=== PATIENT | male | born 2000 | race Caucasian/White ===

== ENCOUNTER 2022-07-04 01:53 | Emergency (ER) | payer OTHER, SELFPAY ==
[2022-07-04] VITALS (14 sets, daily range): BP systolic 125–149; BP diastolic 70–83; PULSE 91–105; RESP 12–24; TEMP 36.8; O2SAT 97–100
--- NOTE | ~2022-07-04 | XR_ITS ---
EXAMINATION: XR chest 2V 07/04/2022 02:22 INDICATION: Chest pain PROCEDURE: 2 view chest COMPARISON: No prior studies for comparison. FINDINGS: The lungs are clear. The cardiomediastinal silhouette is within normal limits. There are no pleural effusions. There is no pneumothorax suspected. IMPRESSION: 1: NO ACUTE CARDIOPULMONARY DISEASE. Reviewed, dictated and finalized at location [facility]. [facility] [employer]
--- NOTE | 2022-07-04 02:05 | ECG_ITS ---
Measurements Intervals [place] Rate: 99 P: 47 [place]: 148 QRS: 36 QRSD: 97 T: 24 QT: 352 QTc: 453 Interpretive Statements SINUS RHYTHM NONSPECIFIC ST ABNORMALITY BORDERLINE ECG NO PREVIOUS ECG AVAILABLE FOR COMPARISON Electronically Signed On 07-04-2022 14:45:30 [employer] by Trell Rosenberg M.D.
[2022-07-04 02:14] LABS: Basophils Percent Auto 0.1 % (0.2-1.2); Eosinophils Percent Auto 0.2 % (0-4.4); Hematocrit 43.1 % (42.0-52.0); Hemoglobin 14.8 g/dL (14.0-18.0); Immature Granulocyte Absolute 0.07 K/mm3 (0.00-0.031); Immature Granulocyte Percent A 0.4 % (0-0.5); Lymphocytes Absolute Auto 2.07 K/mm3 (0.9-3.2); Lymphocytes Percent Auto 12.6 % (18.3-44.2); Mean Corpuscular HGB Conc 34.3 g/dl (32-36); Mean Corpuscular Hemoglobin 31.5 pg (26-34); Mean Corpuscular Volume 91.7 fl (80-100); Mean Platelet Volume 9.7 fl (7.4-10.4); Monocytes Absolute Auto 1.3 K/mm3 (0.1-0.6); Monocytes Percent Auto 8.1 % (2.6-8.5); Neutrophils Absolute Auto 12.9 K/mm3 (1.3-6.7); Neutrophils Percent Auto 78.6 % (45.5-73.1); Platelet Count Result 255 k/mm3 (150-375); Red Cell Distribution Width 12.5 % (11.5-14.5); White Blood Count 16.4 K/mm3 (4.5-10.0)
[2022-07-04 02:30] LABS: Alanine Aminotransferase 23 U/L (6-50); Albumin Level 5.1 g/dL (3.5-5.1); Alkaline Phosphatase 74 U/L (38-126); Anion Gap 10 mmol/L (8-16); Aspartate Amino Transferase 37 U/L (17-59); Bilirubin,Total 0.6 mg/dL (0.2-1.3); Blood Urea Nitrogen 9 mg/dL (9-20); Calcium 8.7 mg/dL (8.4-10.2); Carbon Dioxide 28 mmol/L (22-30); Chloride 101 mmol/L (98-107); Estimated Glomerular Filt Rate > 60; Glucose 96 mg/dL (65-110); Lipase 71 U/L (23-300); Potassium 4.1 mmol/L (3.4-5.0); Sodium 139 mmol/L (137-145)
[2022-07-04 02:34] LABS: INR 1.1; Prothrombin Time 13.5 Seconds (11.1-14.7)
[2022-07-04 02:35] LABS: Partial Thromboplastin Time 30.2 SECONDS (22.3-36.8)
[2022-07-04] MEDS: LORazepam INJ (*CRX) 2 MG/ML VIAL IV PUSH (02:41)
[2022-07-04 02:42] LABS: Troponin I < 0.012 ng/mL (0.000-0.034)
--- NOTE | 2022-07-04 03:16 | ED.GENADULT ---
HPI - General Adult General Chief complaint: Chest Pain Stated complaint: Chest pain/shoulder pain after cocaine Time Seen by Provider: 07/04/22 02:08 History of Present Illness HPI narrative: this is a 22-year-old male presenting with chest pain. Patient used cocaine at midnight. He then developed chest tightness that radiated to his left arm and to his jaw. Three out 10 intensity, improving and has now resolved. Never experienced before no exacerbating or relieving factors. Associated shortness breath. No nausea vomiting diaphoresis or exertional component. No fever, chills, productive cough. No history of IV drug abuse. Related Data Allergies Allergy/AdvReac Type Severity Reaction Status Date / Time No Known Drug Allergies Allergy Unknown unknown Verified 07/04/22 02:00 [facility] Past Medical History Medical History Anxiety Substance use disorder Social History Social History Social History: Patient drinks alcohol on weekend, uses cocaine frequently, denies other drug use Smoking status: Never smoker Tobacco type: e-cigarettes/vaping Second hand tobacco smoke exposure: No Alcohol intake: current Alcohol use details: occasional Substance use: former Substance use type: does not use and marijuana Living arrangements: with family Occupation/Education: occupation Gender identity (if verbalized by the patient): Male Exam Narrative: APPEARANCE: No apparent distress. Head: atraumatic. EYES: EOMI, NOSE: Atraumatic NECK: Trachea midline RESPIRATORY: No increased rate of breathing your auscultation bilaterally CARDIOVASCULAR: RRR, no peripheral edema ABDOMINAL: Non-distended, no guarding rebound MUSCULOSKELETAl: No obvious deformities NEURO: Alert. Moving 4/4 extremities SKIN:: Warm, dry. Normal color PSYCHIATRIC: Normal affect Course Vital Signs Vital signs: Vital Signs Temperature 98.2 F 07/04/22 01:57 Pulse Rate 102 H 07/04/22 01:57 Respiratory Rate 20 07/04/22 01:57 Blood Pressure 149/83 H 07/04/22 01:57 Pulse Oximetry 100 07/04/22 01:57 Oxygen Delivery Room Air 07/04/22 01:57 Temperature 98.2 F 07/04/22 01:57 Pulse Rate 94 07/04/22 03:31 Respiratory Rate 12 07/04/22 03:31 Blood Pressure 125/70 07/04/22 03:30 Pulse Oximetry 100 07/04/22 03:31 Oxygen Delivery Room Air 07/04/22 01:57 Medical Decision Making [facility] Narrative Medical decision making narrative: -Presentation: 22-year-old presenting with cocaine induced chest pain. -DDX includes but is not limited to: Cocaine induced chest pain, spontaneous pneumothorax, anxiety -Co-morbidities complicating care: substance use disorder, anxiety -Social determinants of health: patient is employed lives with family -External Chart Review: none -Hx from independent Sources: family at bedside -Discussion of Management/Consultants: none -Independent interpretation of studies: CBC showed a white blood cell count 16.4. Metabolic panel showed no abnormalities. Troponin was undetectable. Chest x-ray showed no acute cardiopulmonary process. Independent EKG interpretation: Rhythm [sinus], Rate [99], [place] -[normal], [place] -[normal], QRS [narrow], QTC [normal], T waves -[negative for concerning inversions], ST Segments - [Negative for concerning elevations] Final interpretations: [Normal Sinus Rhythm] Dx tests considered but not ordered: none -Procedures: none -Interventions: 2 mg Ativan -Shared decision making / Disposition: upon re-evaluation the patient's vital signs have normalized. His symptoms are resolved. Lengthy discussion was had with him his family about his substance use disorder. Patient will be given outpatient resources. -RX Vital Signs Vital Signs: Vital Signs Temperature 98.2 F 07/04/22 01:57 Pulse Rate 102 H 07/04/22 01:57 Respiratory Rate
== END 2022-07-04 03:37 | disposition home or self-care (01) ==
PROVIDERS: Emergency Provider Emergency Medicine; PCP Family Medicine
DX: F14.10 Cocaine abuse, uncomplicated (principal); R94.31 Abnormal electrocardiogram [ECG] [EKG]
CPT/HCPCS: 36415; 71046; 80053; 83690; 84484; 85025; 85610; 85730; 93005; 96374; 99284; J2060